=== PATIENT | male | born 1965 | race Caucasian/White ===

== ENCOUNTER 2019-06-28 10:18 | Emergency (ER) | payer SELFPAY ==
--- OUTSIDE RECORDS SUMMARY | 2019-06-28 10:26 | XMS REPORT | Continuity of Care Document ---
:1965 External Reference #:[id number] Author Name Yolanda Simon, RN [employer] Address [address] [place] [address] Problems Description No Information Available Social History Type Date Description Comments Sex Unknown Tobacco Use Start: Unknown Heavy tobacco smoker (more than 10 cigarettes/day) Tobacco Use Start: Unknown Patient is a current smoker, smokes every day Smoking Status Reviewed: 05/13/19 Patient is a current smoker, smokes every day Seat Belt/Car Seat Negative For always uses seat belt Allergies, Adverse Reactions, Alerts Active Allergies Reaction Severity Comments Date NKDA 10/27/2014 Bananas 05/13/2019 Medications Active Medications SIG Qnty Indications Ordering Date Provider Amlodipine 1 by mouth every 90tabs I10 Yolanda Simon 05/13/2019 Besylate-Valsartan day Sejal, RN [employer] 5-160mg Tablets Escitalopram Oxalate 1 by mouth every 30tabs F41.1 Yolanda Simon 2018 day Sejal, RN [employer] 10mg Tablets Losartan Potassium 1 by mouth every 30tabs I10 Yolanda Simon 02/12/2019 day Sejal, RN [employer] 50mg Tablets Atorvastatin Calcium 1 by mouth every 90tabs E78.2 Yolanda Simon 2016 day Sejal, RN [employer] 10mg Tablets Viagra take one-half to 6tabs F52.21 Yolanda Simon 08/22/2016 100mg Tablets one tablet by mouth Sejal, RN [employer] as needed one hour before intercourse Immunizations CPT Code Status Date Vaccine Reaction Lot # [id number] Given 11/22/2006 Tdap (Adacel) Ages 7 And Above Only [facility] [id number] Refused 11/28/2016 Influenza Vac, Quadrivalent, Split, 0.5mL Dosage, Im Use Vital Signs Date Vital Result Comment 05/13/2019 12:57pm Weight 180.00 lb Heart Rate 86 /min BP Systolic 181 mmHg BP Diastolic 106 mmHg Height 67.5 inches 5'7.50" BMI (Body Mass Index) 27.8 kg/m2 02/12/2019 9:26am Weight 180.00 lb Heart Rate 79 /min BP Systolic 144 mmHg BP Diastolic 90 mmHg Height 67.5 inches 5'7.50" BMI (Body Mass Index) 27.8 kg/m2 Results Description No Information Available Procedures Date Code Description Status 05/13/2019 50478 Electrocardiogram Complete Completed Medical Devices Description No Information Available Encounters Type Date Location Provider Dx Diagnosis Office Visit 02/12/2019 Rosalinda Yolanda Simon, I10 Essential (primary) 9:20a RN [facility] hypertension I10 Essential (primary) hypertension F41.1 Generalized anxiety disorder F41.1 Generalized anxiety disorder Z68.27 Body mass index (BMI) 27.0-27.9, adult Assessments Date Code Description Provider 05/13/2019 E66.01 Morbid (severe) obesity due to excess Yolanda Simon RN [facility] calories 05/13/2019 R10.11 RIGHT upper quadrant pain Yolanda Simon, YAYA [facility] 05/13/2019 I10 Essential (primary) hypertension Yolanda Simon RN [facility] 05/13/2019 Z68.27 Body mass index (BMI) 27.0-27.9, adult Yolanda Simon RN [facility] 02/12/2019 I10 Essential (primary) hypertension Yolanda Simon RN [facility] 02/12/2019 I10 Essential (primary) hypertension Yolanda Simon, YAYA [facility] 02/12/2019 F41.1 Generalized anxiety disorder Yolanda Simon, YAYA [facility] 02/12/2019 F41.1 Generalized anxiety disorder Yolanda Simon, YAYA [facility] 02/12/2019 Z68.27 Body mass index (BMI) 27.0-27.9, adult Yolanda Simon RN [facility] Plan of Treatment 05/13/2019 - [facility] Morbid (severe) obesity due to excess sjxiueotS24.11 RIGHT upper quadrant painNew Xrays:Ultrasound Abd Limited , Ordered: 09/25/19I10 Essential (primary) hypertensionNew Medication: Amlodipine Besylate-Valsartan 5-160 mg - 1 by mouth every dayMiscellaneous:call our office with your bp numbers in 1-2 weeks so we can adjust your [id number] Body mass index (BMI) 27.0-27.9, adult Functional Status Description No Information Available Mental Status Description No Information Available Referrals Description No Information Available
--- OUTSIDE RECORDS SUMMARY | 2019-06-28 10:26 | XMS REPORT | Continuity of Care Document ---
:1965 External Reference #:[id number] Author Name RamirezMaya Problems Description No Information Available Social History [...] 90tabs I10 Yolanda Simon 05/13/2019 Besylate-Valsartan day C, RN [employer] 5-160mg Tablets Escitalopram Oxalate 1 by mouth every 30tabs F41.1 Yolanda Simon 2018 day Sejal, RN [employer] 10mg Tablets Losartan Potassium 1 by mouth every 30tabs I10 Yolanda Simon 02/12/2019 day Sejal, RN [employer] 50mg Tablets Atorvastatin Calcium 1 by mouth every 90tabs E78.2 Yolanda Simon 2016 day Sejal, RN [employer] 10mg Tablets Viagra take one-half to 6tabs F52.21 Yolanda Simon 08/22/2016 100mg Tablets one tablet by mouth C, RN [employer] as needed one hour before intercourse Immunizations CPT Code Status Date Vaccine Reaction Lot # [id number] Given 11/22/2006 Tdap (Adacel) Ages 7 And Above Only [facility] [id number] Refused 11/28/2016 Influenza Vac, Quadrivalent, Split, 0.5mL [...] Available Procedures Date Code Description Status 05/13/2019 48486 Electrocardiogram Complete Completed Medical Devices Description No Information Available Encounters Type Date Location Provider Dx Diagnosis Office Visit 02/12/2019 Rosalinda Yolanda Simon, I10 Essential (primary) 9:20a RN [facility] hypertension I10 Essential (primary) hypertension F41.1 Generalized anxiety disorder F41.1 Generalized anxiety disorder Z68.27 Body mass index (BMI) 27.0-27.9, adult Assessments Date Code Description Provider 05/13/2019 E66.01 Morbid (severe) obesity due to excess Yolanda Simon RN [facility] calories 05/13/2019 R10.11 RIGHT upper quadrant pain Yolanda Simon RN [facility] 05/13/2019 I10 Essential (primary) hypertension Yolanda Simon RN [facility] 05/13/2019 Z68.27 Body mass index (BMI) 27.0-27.9, adult Yolanda Simon RN [facility] 02/12/2019 I10 Essential (primary) hypertension Yolanda Simon RN [facility] 02/12/2019 I10 Essential (primary) hypertension Yolanda Simon RN [facility] 02/12/2019 F41.1 Generalized anxiety disorder Yolanda Simon RN [facility] 02/12/2019 F41.1 Generalized anxiety disorder Yolanda Simon RN [facility] 02/12/2019 Z68.27 Body mass index (BMI) 27.0-27.9, adult Yolanda Simon RN [facility] Plan of Treatment 05/13/2019 - [facility] Morbid (severe) obesity due to excess [id number] RIGHT upper quadrant painNew Xrays:Ultrasound Abd Limited , Ordered: 05/13/19I10 Essential (primary) hypertensionNew Medication: Amlodipine Besylate-Valsartan 5-160 mg - 1 by mouth every dayMiscellaneous:call our office with your bp numbers in 1-2 weeks so we can adjust your [id number] Body mass index (BMI) 27.0-27.9, adult Functional Status Description No Information Available Mental Status Description No Information Available Referrals Description No Information Available
[2019-06-28 10:34] VITALS: BP 138/94
--- NOTE | 2019-06-28 11:00 | UC ---
General HPI - HPI Summary HPI Summary: Pleasant 53 yo gentleman with R upper ant abd wall wound, started several days ago as a pimple. Not getting better. Has tried neosporin, bandaid, cleansing. No fever / chills. Last tet > 10 yrs. No n/v/d. No rash, except redness around the wound. No hx prior problems wounds. non-smoker. Works outside. Non-dm. 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 Pain Intensity: 2 - Allergy/Home Medications Allergies/Adverse Reactions: Allergies Allergy/AdvReac Type Severity Reaction Status Date / Time No Known Allergies Allergy Verified 06/28/19 10:35 Home Medications: Home Medications Amlodipine Besylate/Valsartan [Amlodipine Besylate/Valsa 5-160 mg-] 1 tab PO DAILY 06/28/19 [History Confirmed 06/28/19] Escitalopram SOLN* ORALSYR 1 tab PO DAILY 06/28/19 [History Confirmed 06/28/19] PMH/Surg Hx/FS Hx/Imm Hx Previously Healthy: Yes - Surgical History Surgical History: Yes Surgery Procedure, Year, and Place: hernia abd; cervical spine - Family History Known Family History: Positive: None - Social History Alcohol Use: None Substance Use Type: Cocaine Substance Use Comment - Amount & Last Used: last use 2 months ago Smoking Status (MU): Heavy Every Day Tobacco Smoker Type: Cigarettes Have You Smoked in the Last Year: Yes - Immunization History Hx Tetanus, Diphtheria Vaccination: - He does not remember when his last tetanus shot was given. Review of Systems All Other Systems Reviewed And Are Negative: Yes Constitutional: Positive: Negative Skin: Positive: Other - see hpi Eyes: Positive: Negative ENT: Positive: Negative Respiratory: Positive: Negative Cardiovascular: Positive: Negative Gastrointestinal: Positive: Other - see hpi Motor: Positive: Negative Neurovascular: Positive: Negative Musculoskeletal: Positive: Negative Neurological: Positive: Negative Psychological: Positive: Negative Is Patient Immunocompromised?: No Physical Exam Triage Information Reviewed: Yes Appearance: Well-Appearing, Well-Nourished Vital Signs: Initial Vital Signs Temp 98 F 06/28/19 10:32 Pulse 75 06/28/19 10:32 Resp 16 06/28/19 10:32 BP 138/94 11/10/19 10:32 Pulse Ox 100 06/28/19 10:32 Vital Signs Reviewed: Yes Eye Exam: Normal ENT Exam: Normal Neck exam: Normal Respiratory Exam: Normal Cardiovascular Exam: Normal Cardiovascular: Positive: Brisk Capillary Refill Abdominal Exam: Normal - see "skin" re wound / abscess Abdomen Description: Positive: Nontender Musculoskeletal Exam: Normal Neurological Exam: Normal - grossly nonfocal Psychological Exam: Normal - conversing easily and appropriately. nad. Skin Exam: Other - no visible or reported rash. Upper R abd wall + ulcer ( problem wound). This is draining mod drainage, redness and swelling extend approx 4cm L x 7.5cm W. Opening has necrosed, revealing underlying devitalized slough, some whitish yellow purulence. The wound however, remains loculated. As such, it was I/D'd (see procedure note). During the course of procedure, the wound was opened to approx 1.5cm W, 0.4cm L. Depth approx 1.5cm, with undermining circumferential approx 1.7cm. Course/Dx - Course Course Of Treatment: bp 138/94. reviewed need to f/u pcp in the next 4 weeks for recheck bp. Procedure note: I/D. Time out performed. Local anesthesia with 10 cc 2% lidocaine, no epi. # 11 blade incision to central wound. Irrigated. Removed a moderate amount of devitalized fibin and slough and purulence. Ulcer cx sent. Tolerated well. Bandage by myself, surgical packing gauze, dry gauze / abd pad / paper tape. Reviewed wound care and f/u. Questions as posed answered to the best of my ability. Recommend f/u [facility], he will call Saturday to schedule an appt. F/u PCP as well. Boostrix today. - Diagnoses Provider Diagnosis: Abscess, Cellulitis Discharge ED - Sign-Out/Discharge Documenting (check all that apply): Patient Departure All imaging exams completed and their final reports reviewed: No Studies - Discharge Plan Condition: Stable Disposition: HOME Prescriptions: Clindamycin HCl 300 mg PO TID #30 capsule Ibuprofen TAB* [Motrin TAB* 600 MG] 600 mg PO Q8H PRN #30 tab PRN Reason: Pain Patient Education Materials: Diphtheria/Acellular Pertussis/Tetanus Booster Vaccine (By injection), Cellulitis (ED), Abscess (ED) Forms: *Work Release Referrals: Yolanda Simon [Primary Care Provider] - Additional Instructions: Follow up with primary care physician, this week if possible. You will need a wound check in 2 days. Please avoid getting the wound wet for 2 days. Please go to the Emergency Department for worse or new problems or fever. Follow up with the [facility] [place] - call Saturday for appointment for this week. . Avoid prolonged sun exposure. Minimize astringents. Avoid "neosporin," "telfa" Wound care today: surgical packing gauze, dry guaze / abd pad, paper tape. You may put a little vaseline around the wound if it itches. Wound culture has been sent. - Billing Disposition and Condition Condition: STABLE Disposition: Home
[2019-06-28] MEDS ORDERED: Lidocaine 2% PF * 5 ML VIAL INJ ONE (11:33)
[2019-06-28] MEDS ORDERED: Tetan/Diph/Pertus SYR(Tdap)* 0.5 ML SYR(BOOSTRIX) use SYR contains LATEX IM ONE (11:34)
[2019-06-28] MEDS ORDERED: Lidocaine 1% MPF ** 5 ML VIAL IM ONE (11:34)
[2019-06-28] MEDS ORDERED: cefTRIAXone VIAL(*) 500 MG VIAL IM ONE (11:34)
[2019-06-28] MEDS ORDERED: cefTRIAXone VIAL(*) 1,000 MG VIAL IM ONE (11:40)
[2019-06-28] MEDS ORDERED: Clindamycin CAP* 150 MG PO ONE (11:44)
--- NOTE | 2019-06-28 17:36 | UC ---
- Progress Note Progress Note: Preliminary wound culture report reviewed: MRSA positive Patient is already on clindamycin. RN to call and inform patient of the test findings, recommend no change in the medications for now and await final culture sensitivity report. Course/Dx - Diagnoses Provider Diagnoses: Abscess, Cellulitis Discharge ED - Sign-Out/Discharge Documenting (check all that apply): Post-Discharge Follow Up All imaging exams completed and their final reports reviewed: No Studies - Discharge Plan Condition: Stable Disposition: HOME Prescriptions: Clindamycin HCl 300 mg PO TID #30 capsule Ibuprofen TAB* [Motrin TAB* 600 MG] 600 mg PO Q8H PRN #30 tab PRN Reason: Pain Patient Education Materials: Diphtheria/Acellular Pertussis/Tetanus Booster Vaccine (By injection), Cellulitis (ED), Abscess (ED) Forms: *Work Release Referrals: Yolanda Simon [Primary Care Provider] - Additional Instructions: Follow up with primary care physician, this week if possible. You will need a wound check in 2 days. Please avoid getting the wound wet for 2 days. Please go to the Emergency Department for worse or new problems or fever. [facility] up with the [facility] - call Saturday for appointment for this week. . Avoid prolonged sun exposure. Minimize astringents. Avoid "neosporin," "telfa" Wound care today: surgical packing gauze, dry guaze / abd pad, paper tape. You may put a little vaseline around the wound if it itches. Wound culture has been sent. - Billing Disposition and Condition Condition: STABLE Disposition: Home
== END 2019-06-28 12:39 | disposition home or self-care (01) ==
LOC: UCEAST 10:18
DX: L02.211 Cutaneous abscess of abdominal wall (principal); L03.311 Cellulitis of abdominal wall; F17.210 Nicotine dependence, cigarettes, uncomplicated
CPT/HCPCS: 10060; 87070; 87077; 87186; 87205; 87640; 87641; 99202; G0463; J0696

== ENCOUNTER 2019-06-30 11:01 | Emergency (ER) | payer SELFPAY ==
[2019-06-30 11:52] VITALS: BP 140/88
--- NOTE | 2019-06-30 11:57 | UC ---
Skin Complaint HPI - HPI Summary HPI Summary: 53 yo male presents for wound check. He was seen here 2 days ago for an abscess to his abdomen that was I&D'd. Packing was placed. He was placed on clindamycin. Culture returned positive for MRSA. Today pt states his pain is much better and redness/swelling has reduced. No fevers or chills - History of Current Complaint Chief Complaint: UCWounds Time Seen by Provider: 06/30/19 11:56 Stated Complaint: WOUND RECHECK Hx Obtained From: Patient Onset Severity: Moderate Current Severity: Mild Pain Intensity: 2 Pain Scale Used: 0-10 Numeric - Allergy/Home Medications Allergies/Adverse Reactions: Allergies Allergy/AdvReac Type Severity Reaction Status Date / Time No Known Allergies Allergy Verified 06/30/19 11:44 Home Medications: Home Medications Escitalopram Oxalate [Lexapro 10 mg] 10 mg PO DAILY 06/30/19 [History Confirmed 06/30/19] Ibuprofen TAB* [Advil TAB*] 200 mg PO Q6H PRN 06/30/19 [History Confirmed ] PMH/Surg Hx/FS Hx/Imm Hx Cardiovascular History: Hypertension Psychological History: Anxiety, Depression - Surgical History Surgical History: Yes Surgery Procedure, Year, and Place: unbilical hernia repair as a child; cervical spine 1999 - Family History Known Family History: Positive: None - Social History Occupation: Employed Full-time Lives: With Family Alcohol Use: None Substance Use Type: None Substance Use Comment - Amount & Last Used: last use 2 months ago Smoking Status (MU): Heavy Every Day Tobacco Smoker Type: Cigarettes Amount Used/How Often: 1 PPD Have You Smoked in the Last Year: Yes - Immunization History Hx Tetanus, Diphtheria Vaccination: - He does not remember when his last tetanus shot was given. Review of Systems All Other Systems Reviewed And Are Negative: No Constitutional: Positive: Negative Skin: Positive: Other - Abscess abdomen Respiratory: Positive: Negative Cardiovascular: Positive: Negative Neurological: Positive: Negative Psychological: Positive: Negative Physical Exam - Summary Physical Exam Summary: GENERAL: NAD. WDWN. No pain distress. SKIN: Right abdominal wall 2.0cm diameter area of mild erythema and central incision. No purulent material expressed. Packing in place. Slight TTP. No streaking, bleeding, or extending warmth/erythema. NECK: Supple. Nontender. No lymphadenopathy. CHEST: No accessory muscle use. Breathing comfortably and in no distress. CV: Pulses intact. Cap refill <2seconds NEURO: Alert. PSYCH: Age appropriate behavior. Triage Information Reviewed: Yes Vital Signs: Initial Vital Signs Temp 97.7 F 06/30/19 11:47 Pulse 63 06/30/19 11:47 Resp 18 06/30/19 11:47 BP 140/88 06/30/19 11:47 Pulse Ox 99 06/30/19 11:47 Vital Signs Reviewed: Yes Course/Dx - Course Course Of Treatment: Packing removed without difficulty. Area appears to be healing well. Continue clindamycin and daily dressing changes - Diagnoses Provider Diagnosis: Abscess Discharge ED - Sign-Out/Discharge Documenting (check all that apply): Patient Departure All imaging exams completed and their final reports reviewed: No Studies - Discharge Plan Condition: Stable Disposition: HOME Patient Education Materials: Abscess (ED) Referrals: Yolanda Simon [Primary Care Provider] - Additional Instructions: If you develop a fever, shortness of breath, chest pain, new or worsening symptoms - please call your PCP or go to the ED immediately. Your blood pressure was high at todays visit. Please see your primary provider within 4 weeks for recheck and re-evaluation. Continue your antibiotic as prescribed Continue daily dressing changes until well healed (likely 7-10 days) - Billing Disposition and Condition Condition: STABLE Disposition: Home
== END 2019-06-30 12:05 | disposition home or self-care (01) ==
LOC: UCEAST 11:01
DX: L02.211 Cutaneous abscess of abdominal wall (principal); I10 Essential (primary) hypertension; F17.210 Nicotine dependence, cigarettes, uncomplicated; F41.9 Anxiety disorder, unspecified; F32.9 Major depressive disorder, single episode, unspecified; Z79.899 Other long term (current) drug therapy
CPT/HCPCS: 99212; G0463

== ENCOUNTER 2022-08-29 08:06 | Inpatient (IN) ==
[2022-08-29 08:34] LABS: ABS Basophils 0.1 10^3/ul (0-0.2); ABS Lymphocytes 0.9 10^3/ul (1.0-4.8); ABS Monocytes 1.1 10^3/ul (0-0.8); ABS Neutrophils 12.6 10^3/ul (1.5-7.7); Eosinophil % 0.1 %; Hematocrit 29 % (42-52); Hemoglobin 9.9 g/dL (14.0-18.0); Lymphocyte % 6.1 %; Mean Corpuscular HGB Conc 34 g/dL (31-36); Mean Corpuscular Hemoglobin 27 pg (27-31); Mean Corpuscular Volume 78 fL (80-94); Mean Platelet Volume 6.6 fL (7.4-10.4); Platelet Count 349 10^3/uL (150-450); Red Blood Count 3.73 10^6 /uL (4.18-5.48); Red Cell Distribution Width 13 % (10-15); White Blood Count 14.6 10^3/uL (3.5-10.8)
[2022-08-29] MEDS ORDERED: Iodixanol (CONTRAST) 320 MG/ML 100 ML SDV IV ONE (08:34)
[2022-08-29 08:39] LABS: INR 1.34 (0.88-1.18)
[2022-08-29 09:00] LABS: High Sens Troponin Baseline 38 pg/mL (<20)
[2022-08-29 09:12] LABS: ALT 12 U/L (7-52); AST 9 U/L (13-39); Alkaline Phosphatase 103 U/L (35-149); Anion Gap 6 mmol/L (2-11); Blood Urea Nitrogen 24 mg/dL (6-24); C Reactive Protein 120.56 mg/L (<8.01); CO2 Carbon Dioxide 25 mmol/L (22-32); Chloride 97 mmol/L (101-111); Creatinine, Serum 1.02 mg/dL (0.67-1.17); Globulin 3.1 g/dL (2-4); Glucose 252 mg/dL (70-100); Potassium 4.8 mmol/L (3.5-5.0); Sodium 128 mmol/L (135-145); Total Protein 6.1 g/dL (6.4-8.9); eGFR CKD-EPI 87.3 (>60)
[2022-08-29 10:06] LABS: High Sensitivity Troponin 1 Hr 38 pg/mL (<20)
[2022-08-29 10:30] LABS: Erythrocyte Sed Rate 81 mm/Hr (0-19)
[2022-08-29] MEDS ORDERED: Morphine 4 MG/ML VIAL (1 ml) IV ONE (10:31)
[2022-08-29] MEDS ORDERED: Albuterol HFA INHALER 8 gm MDI INH ONE (10:32)
[2022-08-29] MEDS ORDERED: Albuterol HFA INHALER 8 gm MDI INH PRN (11:47)
[2022-08-29] MEDS ORDERED: Dextrose 50% Syringe 50 ml 25 GM/50 ML SYRINGE IV PUSH PRN (11:49)
[2022-08-29 12:09] LABS: Total Iron Binding Capacity 253 mcg/dL (250-450); Transferrin 181 mg/dL (203-362)
[2022-08-29 12:10] LABS: High Sensitivity Troponin 3 Hr 32 pg/mL (<20)
[2022-08-29 12:21] LABS: % Iron Saturation 8 % (15-55); Iron < 20 ug/dL (50-212); TSH Ultra Thyroid Stim Horm 2.32 mcIU/mL (0.34-5.60); Unsaturated Iron Binding 233 ug/dL
[2022-08-29 12:25] LABS: Free T4 1.06 ng/dL (0.61-1.12)
[2022-08-29 12:29] LABS: Ferritin 242.3 ng/mL (24-336)
[2022-08-29] MEDS ORDERED: NS 0.9% 1000 ml BAG 1,000 ML IV ONE (12:34)
[2022-08-29] MEDS ORDERED: Morphine 2 MG/ML SYRINGE IV ONE ×2 (13:13→19:28)
[2022-08-29] MEDS: Iron Sucrose 200 MG in NS 0.9% 100 ml BAG 100 ML IVPB SCH (17:00)
[2022-08-29] MEDS: Enoxaparin 40 MG/0.4 ML SYR SUBCUT SCH (17:01)
[2022-08-30] MEDS ORDERED: cefTRIAXone 1 GM Q24H (ADVAN) IVPB SCH (03:30)
[2022-08-30] MEDS ORDERED: cefTRIAXone 1 gm/50 mL D5W 1 GM/50 ML BAG IV SCH (03:45)
[2022-08-30 06:15] LABS: Hematocrit 30 % (42-52); Hemoglobin 9.9 g/dL (14.0-18.0); Mean Corpuscular HGB Conc 33 g/dL (31-36); Mean Corpuscular Hemoglobin 27 pg (27-31); Mean Corpuscular Volume 81 fL (80-94); Mean Platelet Volume 6.9 fL (7.4-10.4); Platelet Count 360 10^3/uL (150-450); Red Cell Distribution Width 13 % (10-15); White Blood Count 16.5 10^3/uL (3.5-10.8)
[2022-08-30 06:47] LABS: Calcium 8.3 mg/dL (8.6-10.3); Creatinine, Serum 1.03 mg/dL (0.67-1.17); Potassium 4.7 mmol/L (3.5-5.0); eGFR CKD-EPI 86.3 (>60)
[2022-08-30] MEDS: Iron Sucrose 200 MG in NS 0.9% 100 ml BAG 100 ML IVPB SCH (08:22)
[2022-08-30 08:54] LABS: ABS Lymphocytes 0.9 10^3/ul (1.0-4.8); ABS Monocytes 0.9 10^3/ul (0-0.8); ABS Neutrophils 14.7 10^3/ul (1.5-7.7); Eosinophil % 0.1 %; Lymphocyte % 5.4 %
[2022-08-30] MEDS ORDERED: Vancomycin 1,000 MG in NS 0.9% 250 ml 250 ML IVPB SCH (10:00)
[2022-08-30] MEDS ORDERED: Vancomycin 1,250 MG in NS 0.9% 250 ml 250 ML IVPB ONE (10:15)
[2022-08-30] MEDS ORDERED: Vancomycin per Pharmacy 1 EA NOTE FOLLOW UP PRN (10:54)
[2022-08-30] MEDS: Enoxaparin 40 MG/0.4 ML SYR SUBCUT SCH (18:36)
[2022-08-31] MEDS: Vancomycin 1,250 MG in NS 0.9% 250 ml 250 ML IVPB SCH ×2 (00:26→11:01)
[2022-08-31 05:28] LABS: Urine Appearance Clear; Urine Bilirubin Negative (Negative); Urine Blood Negative (Negative); Urine Color Yellow; Urine Glucose Negative (Negative); Urine Ketones Negative (Negative); Urine Nitrite Negative (Negative); Urine Protein Negative (Negative); Urine Specific Gravity 1.013 (1.002-1.030); Urine Urobilinogen Negative (Negative)
[2022-08-31 05:45] LABS: ABS Basophils 0.1 10^3/ul (0-0.2); ABS Eosinophils 0.3 10^3/ul (0-0.6); ABS Lymphocytes 0.8 10^3/ul (1.0-4.8); ABS Monocytes 0.9 10^3/ul (0-0.8); ABS Neutrophils 11.7 10^3/ul (1.5-7.7); Hematocrit 29 % (42-52); Hemoglobin 9.6 g/dL (14.0-18.0); Lymphocyte % 5.6 %; Mean Corpuscular HGB Conc 33 g/dL (31-36); Mean Corpuscular Hemoglobin 27 pg (27-31); Mean Corpuscular Volume 81 fL (80-94); Mean Platelet Volume 6.9 fL (7.4-10.4); Platelet Count 405 10^3/uL (150-450); Red Blood Count 3.54 10^6 /uL (4.18-5.48); Red Cell Distribution Width 13 % (10-15); White Blood Count 13.7 10^3/uL (3.5-10.8)
[2022-08-31 06:26] LABS: ALT 12 U/L (7-52); AST 9 U/L (13-39); Albumin 2.8 g/dL (3.2-5.2); Albumin/Globulin Ratio 0.8 (1-3); Alkaline Phosphatase 99 U/L (35-149); Anion Gap 4 mmol/L (2-11); Blood Urea Nitrogen 25 mg/dL (6-24); CO2 Carbon Dioxide 28 mmol/L (22-32); Calcium 8.5 mg/dL (8.6-10.3); Chloride 103 mmol/L (101-111); Creatinine, Serum 0.99 mg/dL (0.67-1.17); Globulin 3.3 g/dL (2-4); Glucose 144 mg/dL (70-100); Potassium 4.6 mmol/L (3.5-5.0); Sodium 135 mmol/L (135-145); Total Protein 6.1 g/dL (6.4-8.9); eGFR CKD-EPI 90.5 (>60)
[2022-08-31 06:32] LABS: CRP High Sensitivity > 80.00 mg/L (<2.00)
[2022-08-31] MEDS ORDERED: cefTRIAXone 1 gm/50 mL D5W 1 GM/50 ML BAG IV SCH (11:15)
[2022-08-31] MEDS: cefTRIAXone 2 gm/50 mL D5W 2 GM/50 ML BAG IV SCH (11:58)
[2022-08-31 13:24] LABS: Cholesterol 108 mg/dL; HDL Cholesterol 24.7 mg/dL; LDL Cholesterol 66 mg/dL; Triglycerides 87 mg/dL
[2022-08-31] MEDS: Enoxaparin 40 MG/0.4 ML SYR SUBCUT SCH (17:08)
[2022-09-01 07:17] LABS: ABS Eosinophils 0.1 10^3/ul (0-0.6); ABS Lymphocytes 0.6 10^3/ul (1.0-4.8); ABS Monocytes 0.8 10^3/ul (0-0.8); ABS Neutrophils 9.5 10^3/ul (1.5-7.7); Eosinophil % 1.1 %; Hematocrit 28 % (42-52); Hemoglobin 9.3 g/dL (14.0-18.0); Lymphocyte % 5.3 %; Mean Corpuscular HGB Conc 33 g/dL (31-36); Mean Corpuscular Hemoglobin 27 pg (27-31); Mean Corpuscular Volume 81 fL (80-94); Mean Platelet Volume 6.9 fL (7.4-10.4); Platelet Count 444 10^3/uL (150-450); Red Blood Count 3.46 10^6 /uL (4.18-5.48); Red Cell Distribution Width 13 % (10-15); White Blood Count 11.1 10^3/uL (3.5-10.8)
[2022-09-01 07:52] LABS: Albumin 2.7 g/dL (3.2-5.2); Albumin/Globulin Ratio 0.8 (1-3); Calcium 8.1 mg/dL (8.6-10.3); Creatinine, Serum 0.84 mg/dL (0.67-1.17); Globulin 3.2 g/dL (2-4); Potassium 4.3 mmol/L (3.5-5.0); Total Bilirubin 0.4 mg/dL (0.2-1.0); Total Protein 5.9 g/dL (6.4-8.9); eGFR CKD-EPI 103.6 (>60)
[2022-09-01] MEDS ORDERED: Vancomycin Trough Check NOTE FOLLOW UP ONE (10:30)
[2022-09-01] MEDS: cefTRIAXone 2 gm/50 mL D5W 2 GM/50 ML BAG IV SCH (12:48)
[2022-09-01] MEDS: Enoxaparin 40 MG/0.4 ML SYR SUBCUT SCH (17:27)
[2022-09-02] MEDS: cefTRIAXone 2 gm/50 mL D5W 2 GM/50 ML BAG IV SCH (12:34)
[2022-09-02] MEDS: Enoxaparin 40 MG/0.4 ML SYR SUBCUT SCH (14:23)
[2022-09-03] MEDS ORDERED: Naloxone 0.4 mg VIAL 0.4 mg/ml 1 ml VIAL ONE (08:10)
[2022-09-03] MEDS ORDERED: fentaNYL 100 mcg/2 ml 50 MCG/ML VIAL ONE (08:10)
[2022-09-03] MEDS ORDERED: Midazolam 5 mg/5 ml VIAL 1 mg/ml 5 ml VIAL (5 mg) ONE (08:10)
[2022-09-03] MEDS ORDERED: Flumazenil 0.5 mg/5 ml 0.1 MG/ML 5 ml VIAL ONE (08:10)
[2022-09-03] MEDS: cefTRIAXone 2 gm/50 mL D5W 2 GM/50 ML BAG IV SCH (10:57)
[2022-09-03] MEDS ORDERED: Lidocaine 1% MPF 5 ML VIAL INJ ONE ×2 (11:53→12:30)
[2022-09-03] MEDS: Enoxaparin 40 MG/0.4 ML SYR SUBCUT SCH (15:24)
[2022-09-04] MEDS ORDERED: NS 0.9% 1000 ml BAG 1,000 ML IV SCH (02:00)
[2022-09-04 06:20] LABS: Hematocrit 29 % (42-52); Hemoglobin 9.8 g/dL (14.0-18.0); Mean Corpuscular HGB Conc 34 g/dL (31-36); Mean Corpuscular Hemoglobin 27 pg (27-31); Mean Corpuscular Volume 79 fL (80-94); Mean Platelet Volume 6.7 fL (7.4-10.4); Platelet Count 441 10^3/uL (150-450); Red Blood Count 3.64 10^6 /uL (4.18-5.48); Red Cell Distribution Width 13 % (10-15); White Blood Count 13.9 10^3/uL (3.5-10.8)
[2022-09-04 07:06] LABS: Calcium 8.1 mg/dL (8.6-10.3); Creatinine, Serum 0.81 mg/dL (0.67-1.17); Potassium 4.2 mmol/L (3.5-5.0); eGFR CKD-EPI 104.8 (>60)
[2022-09-04] MEDS ORDERED: fentaNYL 100 mcg/2 ml 50 MCG/ML VIAL ONE (07:56)
[2022-09-04] MEDS ORDERED: Midazolam 5 mg/5 ml VIAL 1 mg/ml 5 ml VIAL (5 mg) ONE (07:56)
[2022-09-04] MEDS ORDERED: Heparin 2 UNITS/ML 1000 mls 2,000 ML IV ONE (07:56)
[2022-09-04] MEDS ORDERED: Iohexol 350 (CONTRAST) 100 ML PAK IV ONE ×3 (07:56→08:53)
[2022-09-04] MEDS ORDERED: VERAPAMIL 2.5 MG/ML 2 ML VIAL ** 5 mg/2 ml ONE (07:56)
[2022-09-04] MEDS ORDERED: Heparin 1,000 UNIT/ML 10 ml (10,000 UNITS) CATHLAB/DIALYSIS ONE (07:56)
[2022-09-04] MEDS ORDERED: Lidocaine 1% MPF 5 ML VIAL ONE (07:56)
[2022-09-04] MEDS ORDERED: nitroGLYCERIN DRIP 25,000 MCG/250 ML BTL ONE (07:56)
[2022-09-04] MEDS: cefTRIAXone 2 gm/50 mL D5W 2 GM/50 ML BAG IV SCH (13:21)
[2022-09-04] MEDS: Enoxaparin 40 MG/0.4 ML SYR SUBCUT SCH (17:55)
[2022-09-04 18:19] LABS: Rapid COVID-19 Molecular Undetected (Undetected)
[2022-09-05 06:24] LABS: ABS Basophils 0.1 10^3/ul (0-0.2); ABS Eosinophils 0.2 10^3/ul (0-0.6); ABS Lymphocytes 1.1 10^3/ul (1.0-4.8); ABS Monocytes 0.9 10^3/ul (0-0.8); ABS Neutrophils 9.8 10^3/ul (1.5-7.7); Eosinophil % 1.6 %; Hematocrit 28 % (42-52); Hemoglobin 9.5 g/dL (14.0-18.0); Lymphocyte % 9.2 %; Mean Corpuscular HGB Conc 34 g/dL (31-36); Mean Corpuscular Hemoglobin 28 pg (27-31); Mean Corpuscular Volume 80 fL (80-94); Platelet Count 391 10^3/uL (150-450); Red Blood Count 3.44 10^6 /uL (4.18-5.48); Red Cell Distribution Width 14 % (10-15); White Blood Count 12.1 10^3/uL (3.5-10.8)
[2022-09-05 06:43] LABS: C Reactive Protein 139.69 mg/L (<8.01); Calcium 8.3 mg/dL (8.6-10.3); Creatinine, Serum 0.89 mg/dL (0.67-1.17); Potassium 4.3 mmol/L (3.5-5.0); eGFR CKD-EPI 101.8 (>60)
[2022-09-05] MEDS: cefTRIAXone 2 gm/50 mL D5W 2 GM/50 ML BAG IV SCH (11:54)
[2022-09-05 16:01] VITALS: BP 101/57
[2022-09-05] MEDS: Enoxaparin 40 MG/0.4 ML SYR SUBCUT SCH (17:37)
== END 2022-09-05 18:30 | disposition short-term general hospital (02) | DRG 286 ==
LOC: ED 08:06 → EDHOLD 08:06 → SUATTDRO 11:33 → MEDTELE 15:55 → SUATTDRO 08-31 11:40 → MEDTELE 09-01 18:06
PROVIDERS: ADMIT Hospitalist; ATTEND Student in an Organized Health Care Education/Training Program

== ENCOUNTER 2022-10-28 17:35 | Observation (INO) ==
[2022-10-28 18:06] LABS: ABS Basophils 0.1 10^3/ul (0-0.2); ABS Eosinophils 0.1 10^3/ul (0-0.6); ABS Lymphocytes 1.5 10^3/ul (1.0-4.8); Eosinophil % 0.7 %; Hematocrit 38 % (42-52); Hemoglobin 12.6 g/dL (14.0-18.0); Lymphocyte % 15.2 %; Mean Corpuscular HGB Conc 33 g/dL (31-36); Mean Corpuscular Hemoglobin 26 pg (27-31); Mean Corpuscular Volume 77 fL (80-94); Nucleated Red Blood Cells % 0.1; Platelet Count 349 10^3/uL (150-450); Red Cell Distribution Width 18 % (10-15); White Blood Count 9.6 10^3/uL (3.5-10.8)
[2022-10-28 18:11] LABS: INR 1.11 (0.88-1.18)
[2022-10-28 18:19] LABS: Albumin 4.1 g/dL (3.2-5.2); Anion Gap 4 mmol/L (2-11); CO2 Carbon Dioxide 31 mmol/L (22-32); Calcium 9.5 mg/dL (8.6-10.3); Chloride 100 mmol/L (101-111); Potassium 4.1 mmol/L (3.5-5.0); Sodium 135 mmol/L (135-145)
[2022-10-28 18:25] LABS: ALT 17 U/L (7-52); AST 11 U/L (13-39); Albumin/Globulin Ratio 1.2 (1-3); Alkaline Phosphatase 124 U/L (35-149); Blood Urea Nitrogen 13 mg/dL (6-24); Creatinine, Serum 0.79 mg/dL (0.67-1.17); Globulin 3.4 g/dL (2-4); Glucose 210 mg/dL (70-100); Total Protein 7.5 g/dL (6.4-8.9); eGFR CKD-EPI 104.9 (>60)
[2022-10-28 18:31] LABS: High Sens Troponin Baseline 11 pg/mL (<20)
[2022-10-28 20:01] LABS: High Sensitivity Troponin 1 Hr 11 pg/mL (<20)
[2022-10-28] MEDS ORDERED: Iodixanol (CONTRAST) 320 MG/ML 100 ML SDV IV ONE (22:16)
[2022-10-29] MEDS ORDERED: Magnesium Hydroxide LIQ 30 ML UDC PO PRN (01:29)
[2022-10-29] MEDS ORDERED: Senna TAB 8.6 mg TAB PO PRN (01:29)
[2022-10-29] MEDS ORDERED: Pantoprazole VIAL 40 MG VIAL IV ONE (01:32)
[2022-10-29] MEDS ORDERED: Al Hydrox/Mg Hydrox/Simet LIQ 30 ML UDC PO ONE (01:37)
[2022-10-29 01:38] LABS: Lipase 29 U/L (11.0-82.0)
[2022-10-29] MEDS ORDERED: Dextrose 50% Syringe 50 ml 25 GM/50 ML SYRINGE IV PUSH PRN (02:22)
[2022-10-29] MEDS ORDERED: Morphine 2 MG/ML SYRINGE IV PRN (05:13)
[2022-10-29] MEDS ORDERED: Al Hydrox/Mg Hydrox/Simet LIQ 30 ML UDC PO PRN (16:38)
[2022-10-29 18:32] LABS: % Iron Saturation 5 % (15-55); .Transferrin 280 mg/dL (203-362); Iron < 20 ug/dL (50-212); Total Iron Binding Capacity 392 mcg/dL (250-450); Unsaturated Iron Binding 372 ug/dL
[2022-10-29 18:52] LABS: Ferritin 231.2 ng/mL (24-336)
[2022-10-30 06:29] LABS: ABS Eosinophils 0.3 10^3/ul (0-0.6); ABS Lymphocytes 1.3 10^3/ul (1.0-4.8); ABS Monocytes 0.6 10^3/ul (0-0.8); Eosinophil % 3.8 %; Hematocrit 38 % (42-52); Hemoglobin 12.8 g/dL (14.0-18.0); Lymphocyte % 18.2 %; Mean Corpuscular HGB Conc 33 g/dL (31-36); Mean Corpuscular Hemoglobin 26 pg (27-31); Mean Corpuscular Volume 77 fL (80-94); Mean Platelet Volume 7.4 fL (7.4-10.4); Nucleated Red Blood Cells % 0.1; Platelet Count 402 10^3/uL (150-450); Red Blood Count 4.98 10^6 /uL (4.18-5.48); Red Cell Distribution Width 18 % (10-15); White Blood Count 7.2 10^3/uL (3.5-10.8)
[2022-10-30 06:50] LABS: Creatinine, Serum 0.93 mg/dL (0.67-1.17); Potassium 4.5 mmol/L (3.5-5.0)
[2022-10-30] MEDS ORDERED: NS 0.9% 1000 ml BAG 1,000 ML IV ONE (07:00)
[2022-10-30] MEDS ORDERED: Naloxone 0.4 mg VIAL 0.4 mg/ml 1 ml VIAL ONE (09:22)
[2022-10-30] MEDS ORDERED: fentaNYL 100 mcg/2 ml 50 MCG/ML VIAL ONE (09:22)
[2022-10-30] MEDS ORDERED: Flumazenil 0.5 mg/5 ml 0.1 MG/ML 5 ml VIAL ONE (09:22)
[2022-10-30] MEDS ORDERED: Midazolam 5 mg/5 ml VIAL 1 mg/ml 5 ml VIAL (5 mg) ONE (09:22)
[2022-10-30] MEDS ORDERED: fentaNYL 100 mcg/2 ml 50 MCG/ML VIAL IV SLOW PU ONE (09:26)
[2022-10-30] MEDS ORDERED: Midazolam 10 mg/10 ml VIAL 1 mg/ml 10 ml VIAL (10 mg) IV SLOW PU ONE (09:26)
[2022-10-30] MEDS ORDERED: Iron Sucrose 200 MG in NS 0.9% 100 ml BAG 100 ML IVPB ONE (16:00)
[2022-10-31 08:56] VITALS: BP 137/76
== END 2022-10-31 13:00 | disposition home or self-care (01) ==
LOC: ED 17:35 → EDHOLD 17:35 → SUATTDRO 10-29 01:11 → MEDTELE 10-29 16:56
PROVIDERS: ADMIT Student in an Organized Health Care Education/Training Program; ATTEND Internal Medicine